=== PATIENT | female | born 1990 | race Caucasian/White ===

== ENCOUNTER 2018-04-25 17:18 | Emergency (ER) ==
[2018-04-25 17:26] VITALS: BP 104/68; TEMP 98.4; BMI 25.5
[2018-04-25] MEDS ORDERED: ROCEPHIN IM STA (17:34)
[2018-04-25] MEDS ORDERED: LIDOCAINE HCL 1% SDV IM STA (17:34)
[2018-04-25] MEDS ORDERED: DECADRON 4 MG/ML SDV IM STA (17:34)
[2018-04-25] MEDS ORDERED: MORPHINE 2 MG/ML SYRINGE IM STA (17:35)
--- NOTE | 2018-04-25 17:36 | ED.PDOC ---
General ED Provider: Dr. BOB JOSEPH Chief Complaint: Headache Stated Complaint: sinus headache Time Seen by Physician: 17:20 (has pain on maxillary sinuses ) Mode of Arrival: Walk-In Information Source: Patient Exam Limitations: No limitations Nursing and Triage Documentation Reviewed and Agree: Yes (seen withJAMIE AT ALL TIMES ) Does patient meet sepsis criteria?: No System Inflammatory Response Syndrome: Not Applicable Sepsis Protocol: For patient's 13 years and over: Temp is 96.8 and below OR 101 and greater Pulse >90 BPM Resp >20/minute Acutely Altered Mental Status Are patient's symptoms suggestive of a new infection, such as: -Pneumonia -Skin, Soft Tissue -Endocarditis -UTI -Bone, Joint Infection -Implantable Device -Acute Abdominal Infection -Wound Infection -Meningitis -Blood Stream Catheter Infection -Unknown EENT Complaint Exam - Throat Complaint/Exam Onset/Duration: FACIAL PAIN SINUSES Symptoms Are: Still present Timimg: Constant (X3 DAYS) Initial Severity: Moderate Current Severity: Moderate Aggravating: Reports: None Associated Signs and Symptoms: Denies: Fever, Dysphagia, Drooling, Foreign body sensation, Chills, Cough, Wheezing, Hoarseness, Sinus discomfort, Nasal congestion, Difficulty breathing, Lethargy, Irritability, Decreased activity, Vomiting, Diarrhea, Decreased hearing, Ear drainage Uvula Midline: Yes Nereida-tonsillar Fluctuence: No Scarlatinaform Rash Present: No Stridor Present: No Sinus Tenderness Present: No Tonsillar Hypertrophy Present: No Tonsillar Exudate Present: No Nereida-tonsillar Swelling Present: No Differential Diagnoses: Sinusitis Review of Systems - Review Of Systems Constitutional: Reports: No symptoms Eyes: Reports: No symptoms Ears, Nose, Mouth, Throat: Reports: Ear pain (BILATERAL FACIAL PAIN INCREASED BY BENDING FORWARD) Respiratory: Reports: No symptoms Cardiac: Reports: No symptoms GI: Reports: No symptoms : Reports: No symptoms Musculoskeletal: Reports: No symptoms Skin: Reports: No symptoms Neurological: Reports: No symptoms Endocrine: Reports: No symptoms Hematologic/Lymphatic: Reports: No symptoms All Other Systems: Reviewed and Negative Past Medical History - Past Medical History Previously Healthy: Yes Endocrine: Reports: None Cardiovascular: Reports: None Respiratory: Reports: None Hematological: Reports: None Gastrointestinal: Reports: None Genitourinary: Reports: None Neuro/Psych: Reports: None Musculoskeletal: Reports: None Cancer: Reports: None Last Menstrual Period: LAST WEEK - Surgical History General Surgical History: Reports: None - Family History Family History: Reports: None - Social History Smoking Status: Never smoker Hx Substance Use: No Alcohol Screening: None Physical Exam - Physical Exam Appearance: Well-appearing, No pain distress, Well-nourished Eyes: AALIYAH, EOMI, Conjunctiva clear ENT: Ears normal (MAXILLARY SINUSES TRANSILUMINATE POORLY , TENDER EARS WNL THROAT WNL) Respiratory: Airway patent, Breath sounds clear, Breath sounds equal, Respirations nonlabored Cardiovascular: RRR, Pulses normal, No rub, No murmur GI/: Soft, Nontender, No masses, Bowel sounds normal, No Organomegaly Musculoskeletal: Normal strength, ROM intact, No edema, No calf tenderness Skin: Warm, Dry, Normal color Neurological: Sensation intact, Motor intact, Reflexes intact, Cranial nerves intact, Alert, Oriented Psychiatric: Affect appropriate, Mood appropriate Critical Care Note - Critical Care Note Total Time (mins): 0 Course - Course Vital Signs: Temp Pulse Resp BP Pulse Ox 04/25/18 17:19 98.4 F 83 12 104/68 98 Departure - Departure Time of Disposition: 17:38 (PT HAS BEEN ON AMOXICLLIN PT HAS BEEN UNABLE TO TAKE THE MEDS , IT MAKES HER VOMIT) Disposition: HOME SELF-CARE Discharge Problem: Sinus headache, Headache Sinusitis Qualifiers: Sinusitis location: frontal Chronicity: acute Recurrence: non-recurrent Qualified Code(s): J01.10 - Acute frontal sinusitis, unspecified Instructions: Acute Headache (ED), Sinusitis (ED) Condition: Good Pt referred to PMD for follow-up: Yes IPMP verified?: No Additional Instructions: Please call your Family Physician as soon as possible to schedule a follow-up appointment. Allergies/Adverse Reactions: Allergies No Known Allergies Allergy (Verified 04/25/18 17:26) Home Medications: Ambulatory Orders 1 [No Reported Medications] 04/25/18 Disposition Discussed With: Patient
[2018-04-25] MEDS ORDERED: ZOFRAN 4 MG/2 ML IM STA ×2 (18:19→19:33)
== END 2018-04-25 20:35 | disposition home or self-care (01) ==
LOC: ED 17:18
DX: J01.10 Acute frontal sinusitis, unspecified (principal)
CPT/HCPCS: 96372; 99283